=== PATIENT | female | born 1950 | race Caucasian/White ===

== ENCOUNTER → 2023-05-10 12:39 | Outpatient (REF) | payer MEDICARE, OTHER, SELFPAY | LOC: RAD 12:39 | PROVIDERS: ATTENDING PHYSICIAN Physician Assistant; REFERRING PHYSICIAN Internal Medicine Critical Care Medicine | DX: R91.1 Solitary pulmonary nodule (principal) | CPT/HCPCS: 71260; Q9967 ==

== ENCOUNTER → 2023-06-12 12:41 | Outpatient (REF) | payer MEDICARE, OTHER, SELFPAY | LOC: HWRCS 12:41 | PROVIDERS: ATTENDING PHYSICIAN Internal Medicine Critical Care Medicine; FAMILY PHYSICIAN Physician Assistant | DX: R01.1 Cardiac murmur, unspecified (principal) | CPT/HCPCS: 93306 ==

== ENCOUNTER 2023-08-13 06:43 | Day surgery (SDC) | payer MEDICARE, OTHER, SELFPAY ==
[2023-08-13 12:45] VITALS: BMI 23.3
[2023-08-13 12:46] VITALS: BMI 23.3
[2023-08-13 13:14] VITALS: BP 146/84
[2023-08-13 14:55] VITALS: BP 137/103; BP 146/84
[2023-08-13 15:40] VITALS: BP 141/78
[2023-08-13 15:55] VITALS: BP 138/72
[2023-08-13 16:05] VITALS: BP 149/88
== END 2023-08-13 16:12 | disposition home or self-care (01) ==
LOC: SDS 06:43
PROVIDERS: ATTENDING PHYSICIAN Internal Medicine Critical Care Medicine
DX: R59.0 Localized enlarged lymph nodes (principal); D36.0 Benign neoplasm of lymph nodes
CPT/HCPCS: 31629; 31654; 88172; 88173; 88305; 88177

== ENCOUNTER → 2023-10-08 12:00 | Outpatient (REF) | payer MEDICARE, OTHER, SELFPAY | LOC: DHSLP 12:00 | PROVIDERS: ATTENDING PHYSICIAN Internal Medicine Critical Care Medicine; FAMILY PHYSICIAN Physician Assistant | DX: G47.33 Obstructive sleep apnea (adult) (pediatric) (principal); R09.02 Hypoxemia | CPT/HCPCS: 95800 ==